=== PATIENT | female | born 1930 | race Two or more races ===

== ENCOUNTER 2016-05-17 19:43 | Inpatient (IN) | payer OTHER ==
--- NOTE | ~2016-05-17 | CR206 ---
[facility] A Service of [facility] & [facility] RADIOLOGY TEXT RESULTS PATIENT: BURTON NEGRETE LOCATION: [place] [address] : [birth year] UNIT #: [id number] AGE: [address]: Kimberley Headley MD SEX: F ORDER DR: [id number] [facility] [address] [place], [place] [address] [id number] I MR#: [id number] Acc #: [id number] NAME: BURTON NEGRETE : 1930 SEX: F STUDY DATE/TIME: 05/18/2016 15:51 UNIT: [facility] ROOM: [facility] STUDY DESCRIPTION: CR Pelvis 1 or 2 Views Attending Physician: Kimberley Headley M.D. Ordering Physician: Kimberley Headley M.D. Primary Care Physician: Mckay Emanuel M.D. MEDICAL IMAGING REPORT This report is preliminary unless electronic signature is present EXAM AP pelvis. INDICATIONS Left hip replacement. Left hip surgery. FINDINGS This is a single AP view of the pelvis centered low over the hips and shows a left total hip prosthesis. There is no fracture or dislocation visible. Right hip appears normal. Dictated by... James Calabrese M.D. THIS IS AN ELECTRONICALLY VERIFIED REPORT James Calabrese M.D. at 05/19/2016 12:24 PM DAFNE/ana TD: 05/19/2016 09:36 JOB #: [id number] MEDICAL IMAGING REPORT COPY
--- NOTE | ~2016-05-17 | OR ---
Unit #: [id number] #: [id number] Patient: BURTON NEGRETE [id number] [address] [address] [id number] I MR#: [id number] NAME: BURTON NEGRETE ROOM: 47 Date of Procedure: 05/18/2016 Admission Date: 05/17/2016 Surgeon: Dirk Cano M.D. : 1930 Attending Physician: Kimberley Headley M.D. Primary Care Physician: Mckay Emanuel M.D. OPERATIVE REPORT PREOPERATIVE DIAGNOSIS Left hip femoral neck fracture. POSTOPERATIVE DIAGNOSIS Left hip femoral neck fracture. PROCEDURE PERFORMED Left hip bipolar hemiarthroplasty. LIBRARY CIRCULATION TECHNICIAN Dr. Angel Rdz, Sr. ANESTHESIA General endotracheal. COMPLICATIONS None. SPECIMENS None. DRAINS None. SURGICAL IMPLANTS 1. Casper bipolar hemiarthroplasty system. Size 14 femoral stem. 2. 0 mm neck length. 3. 44 mm outer diameter bipolar shell. 4. Palacos R+G cement. INDICATIONS FOR PROCEDURE Ms. Negrete is an 85-year-old female with dementia, who lives in assisted living. She fell landing on her left hip resulting in a displaced femoral neck fracture. It was felt she would benefit from bipolar hemiarthroplasty. The risks, benefits, and alternatives of surgery were discussed with the patient and family and informed consent was obtained. She was cleared for surgery. DESCRIPTION OF PROCEDURE On 05/18/2016, the patient was seen in the preoperative holding area, where her surgical site was marked. Preoperative antibiotics were received. H and P and consent updated. The patient was taken to the Unit #: [id number] #: [id number] Patient: BURTON NEGRETE operating room, provided general anesthesia. She was placed in lateral decubitus position with the left hip towards the ceiling. At this point, left hip was prepped and draped in typical sterile fashion. Time-out was performed confirming the correct surgical site and procedure. A standard posterior approach to the hip performed. Incision was taken down through the skin and subcutaneous tissues. The fascia and IT band split. Short external rotators released and a T capsulotomy was performed. Fracture site was identified. Femoral neck cut was made with retractors in place. The femoral head was removed. It was sized. The trial shell was placed and noted to be stable for the appropriate size. Sequential broaching of the femur was then performed up to a 14 mm broach. Hip was provisionally reduced and noted to be stable with leg lengths appropriate with 0 mm neck length. At this point, the instruments were removed. Canal was prepared for cement. Cement was mixed on the back table and injected into the canal. The femoral stem was placed with careful attention to anteversion. Excess cement was removed. After 12 minutes, cement was hardened. Trial 0 mm head again was reduced and the hip was again noted to be stable. The final bipolar shell was assembled and placed. It was stable and the hip was reduced. It was taken through full range of motion. It was noted to be stable. The remainder of 3 L normal saline containing bacitracin pulsed through the wound. The capsulotomy was repaired with 0 Vicryl suture and the #2 Ethibond that had been tagged through the two leaflets. Next, the IT band and fascia were closed with 0 Vicryl suture followed by 2-0 Vicryl for subcutaneous tissues and ramona for skin. Xeroform, 4x4s, ABD pad, tape followed by an abduction pillow were placed. The patient was subsequently awakened from general anesthesia in stable condition and taken to PACU postoperatively. POSTOPERATIVE PLAN The patient will be weightbearing as tolerated on the left lower extremity with posterior precautions. She will be on standard 24-hour antibiotic protocol. She will have SCDs along with Lovenox for DVT prophylaxis. No complications were encountered during the surgical procedure. Dictated by... Li Hardin/brett TD: 05/19/2016 10:55 JOB #: [id number] OPERATIVE REPORT X X PROCEDURE OPERATIVE NOTE
--- NOTE | ~2016-05-17 | CT71 ---
[facility] A Service of [facility] & [facility] RADIOLOGY TEXT RESULTS PATIENT: BURTON NEGRETE LOCATION: [place] [address]- : [birth year] UNIT #: [id number] AGE: [address]: Kimberley Headley MD SEX: F ORDER DR: [id number] [facility] [address] [place], [place] [address] [id number] I MR#: [id number] Acc #: [id number] NAME: BURTON NEGRETE : 1930 SEX: F STUDY DATE/TIME: 05/17/2016 20:04 UNIT: [facility] ROOM: [facility] STUDY DESCRIPTION: CT Head Wo Contrast Attending Physician: Tamara Calderon M.D. Ordering Physician: Dillon Bell D.O. Primary Care Physician: Mckay Emanuel M.D. MEDICAL IMAGING REPORT This report is preliminary unless electronic signature is present EXAM Head CT without contrast 05/17/2016. HISTORY Dizziness and confusion today status post fall. TECHNIQUE This CT exam was performed with one or more of the following radiation dose reduction techniques: automatic exposure control, adjustment of mA and/or kV according to patient size, and iterative reconstruction. Axial images of the brain obtained without contrast show generalized atrophy. There are chronic ischemic changes seen around the ventricles. There is no evidence of mass effect, hemorrhage, or edema and no midline shift is seen. No acute changes are noted. IMPRESSION Atrophy with chronic ischemic changes. No acute changes are seen. Dictated by... Cain Fuentes M.D. THIS IS AN ELECTRONICALLY VERIFIED REPORT Cain Fuentes M.D. at 05/18/2016 2:56 PM KRT/gz TD: 05/18/2016 08:25 JOB #: [id number] MEDICAL IMAGING REPORT COPY
--- NOTE | ~2016-05-17 | CR72 ---
[facility] A Service of [facility] RADIOLOGY TEXT RESULTS PATIENT: BURTON NEGRETE LOCATION: [place] [address]- : [birth year] UNIT #: [id number] AGE: [address]: Kimberley Headley MD SEX: F ORDER DR: [id number] [facility] [address] [place], [place] [address] [id number] I MR#: [id number] Acc #: [id number] NAME: BURTON NEGRETE : 1930 SEX: F STUDY DATE/TIME: 05/17/2016 22:00 UNIT: [facility] ROOM: [facility] STUDY DESCRIPTION: CR Chest Single View Portable Attending Physician: Tamara Calderon M.D. Ordering Physician: Tamara Calderon M.D. Primary Care Physician: Mckay Emanuel M.D. MEDICAL IMAGING REPORT This report is preliminary unless electronic signature is present EXAM Portable chest, 05/17/2016. HISTORY Left hip fracture, preop repair. FINDINGS There is mild cardiac enlargement. There is poor inspiratory result with bibasilar atelectasis. The lungs are otherwise clear. There are no pleural effusions. IMPRESSION Mild cardiac enlargement. No active pulmonary disease. Dictated by... Cain Fuentes M.D. THIS IS AN ELECTRONICALLY VERIFIED REPORT Cain Fuentes M.D. at 05/18/2016 2:57 PM BRENNAN/felicity TD: 05/18/2016 09:02 JOB #: [id number] MEDICAL IMAGING REPORT COPY
--- NOTE | ~2016-05-17 | CO ---
Unit #: [id number] #: [id number] Patient: BURTON NEGRETE [id number] [address] [address] [id number] I MR#: [id number] NAME: BURTON NEGRETE ROOM: 47 Age: 85 Sex: F Admission Date: 05/17/2016 : 1930 Attending Physician: Kimberley eHadley M.D. Primary Care Physician: Laith Emanuel Consultation Date: 05/18/2016 CONSULTATION REPORT REASON FOR CONSULTATION Left femoral neck fracture. HISTORY OF PRESENT ILLNESS Ms. Negrete is a pleasant 85-year-old female with history of dementia, who lives in assisted living. She fell landing on her left hip. She was unable to bear weight. She was brought to the emergency room where she was noted to have a mildly displaced left femoral neck fracture. She was admitted to the medical service. She has dementia and does not really know much for her history. She does note some very mild hip pain with motion. It is better with rest. No prior problems with the hip. It is described as a dull ache. PAST MEDICAL HISTORY 1. Hypothyroidism. 2. Dementia. 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 4. Hysterectomy. 5. Prior foot surgery. ALLERGIES Codeine. HOME MEDICATIONS 1. Vitamin B12. 2. Folic acid. 3. Calcium. 4. Synthroid. 5. Namenda. 6. Remeron. FAMILY HISTORY Noncontributory. SOCIAL HISTORY The patient lives at [facility]. She does not smoke or drink alcohol. REVIEW OF SYSTEMS No appreciable pertinent positives or negatives; however, her dementia limits ability to obtain this. PHYSICAL EXAMINATION GENERAL: This patient is alert for exam. She is in no acute distress. Unit #: [id number] #: [id number] Patient: BURTON NEGRETE She is nonoriented to time and place. VITAL SIGNS: 97.8, 96, 20, 160/85, 96% oxygen saturation. HEENT: Head is atraumatic, normocephalic. Extraocular movements intact. Mucous membranes moist. NECK: Cervical spine midline. No JVD. LUNGS: Breathing nonlabored. Chest rise symmetric. HEART: Pulse regular rate and rhythm. ABDOMEN: Soft, nontender, nondistended. EXTREMITIES: No skin lesions. No clubbing, cyanosis, or edema. Focused orthopedic exam of the left lower extremity reveals that the leg is extremely rotated and shortened. There is painful log roll. Tenderness to palpation over the left hip. Foot warm and well perfused. Normal motor and sensory examination. DIAGNOSTIC STUDIES LABORATORY: BMP with sodium of 133 and otherwise normal. White blood cell count 16.4, hemoglobin 13.1, platelets 227,000. IMAGING: AP pelvis, left lateral hip x-ray reviewed. Transverse fracture of the femoral neck noted with displacement on the lateral view. IMPRESSION An 85-year-old female with a left displaced femoral neck fracture. PLAN Discussed the plan with the patient and her daughter at the bedside. I would recommend a bipolar hip hemiarthroplasty. She is cleared for surgery. She will be on surgery for later today on May 18, 2016. Risks, benefits, and alternatives of surgery discussed. Risks include but not limited to infection, bleeding, nerve injury, blood clots, risks associated with anesthesia, need for further surgery, and possibly . All other questions are answered today. Dictated by... Dirk Cano M.D. EYAD/gloria TD: 05/19/2016 10:02 JOB #: [id number] CC: [phone] CONSULTATION REPORT X X CONSULTATION REPORT
--- NOTE | ~2016-05-17 | DS ---
Unit #: [id number] #: [id number] Patient: BURTON NEGRETE [id number] [address] [address] [id number] I MR#: [id number] NAME: BURTON NEGRETE ROOM: 47 Age: 85 Sex: F Admission Date: 05/17/2016 : 1930 Discharge Date: Attending Physician: Nicholas Burgess M.D. Primary Care Physician: Mckay Emanuel M.D. DISCHARGE SUMMARY TENTATIVE DISCHARGE SUMMARY ANTICIPATED DATE OF DISCHARGE 05/26/2016 ADMISSION DIAGNOSES 1. Left hip fracture, unwitnessed fall. 2. Dementia. 3. Hypothyroidism. 4. Elevated white blood count which could be reactive. 5. Elevated blood pressure. DISCHARGE DIAGNOSES 1. Status post open reduction internal fixation, left hip fracture. 2. Dementia. 3. Hypothyroidism versus euthyroid sick syndrome. 4. Anemia. 5. Microscopic hematuria. 6. Elevated white blood count, resolved. 7. Elevated blood pressure, resolved. CONSULTANTS Dirk Cano M.D. - Orthopedic Surgery. PROCEDURES Left hip bipolar hemiarthroplasty. CONDITION Stable. DISPOSITION [facility] rehab. DISCHARGE MEDICATIONS Will be dictated by my colleague on the date of discharge. DISCHARGE INSTRUCTIONS Will be dictated by my colleague on the date of discharge. RECENT DIAGNOSTIC STUDIES WBC 9.2, hemoglobin 9.2, hematocrit 27.8, platelet count 259,000. Sodium 133, potassium 3.9, chloride 101, CO2 22, glucose 100, BUN 21, creatinine 1.0, calcium 8.2, magnesium 2.1. Unit #: [id number] #: [id number] Patient: BURTON NEGRETE Urine culture final - no growth at 48 hours. TSH 7.45. Portable chest x-ray - date of study 05/20/16: Impression - no dense consolidation. AP of the pelvis: Findings - single AP view of pelvis centered low over the hips shows a left total hip prosthesis. No fracture dislocation visible. Right hip appears normal. CT of the head without contrast, 05/17/16: Impression - atrophy with chronic ischemic changes. No acute changes seen. Left femur AP and lateral, 3/09/17: Findings - transverse subcapital fracture of the left femoral neck with approximately 20 degrees of anterior angulation of the fracture apex. Generalized demineralization. No additional fracture. HOSPITAL COURSE The patient is an 85-year-old female with history of dementia, who was admitted to [facility] on the date of admission status post an unwitnessed fall and left hip fracture. Please refer to history and physical report for complete details. Status post ORIF left hip fracture: Dr. Cano was consulted for orthopedic evaluation and management. The patient underwent the above referenced procedure and tolerated it well. She has worked with physical therapy while here. Per PT note today, the patient is "slow moving and needs continuous encouragement and would benefit from inpatient rehab services." The patient is awake, alert, although pleasantly confused secondary to history of severe dementia. She is eating and drinking well. She has no complaints. Her postop pain is controlled at this time. The patient was ready for discharge from our facility on 05/20/16 but has remained at our facility due to lack of acceptance and be availability until this point. Dementia: The patient is stable. She is receiving Namenda and Remeron on a scheduled basis. She has had an order for Haldol IV every six hours as needed for agitation but, per my review of the medication administration record, she has not received this medication. Again, she has been pleasant and cooperative although confused. Her family members have been staying with her for the most part while here. Hypothyroidism: The patient is on Synthroid at this time. However, given the mildly elevated results and the timing of this evaluation during a period of stress and illness, no changes have been made in her thyroid dose. Recommendation is for repeat thyroid panel once acute postop period has resolved. Acute postop blood loss anemia: The patient's hemoglobin and hematocrit have remained stable. She has no obvious bleeding. Plan - recheck CBC in the morning to evaluate hemoglobin and hematocrit prior to discharge to rehab. Microscopic hematuria: Urinalysis was collected from Valente catheter and patient was noted to have leukocytes and red blood cells in the initial urinalysis. The patient was started on Rocephin 1 g IV daily pending Unit #: [id number] #: [id number] Patient: BURTON NEGRETE urine culture and sensitivity results. Final culture results returned with no growth at 48 hours and patient's Rocephin was discontinued yesterday. Dictated by... Lauren Chang A.P.R.N. for Li Gomez/kenton TD: 05/26/2016 06:37 JOB #: [id number] DISCHARGE SUMMARY X Lauren Chang APRN X DISCHARGE SUMMARY
--- NOTE | ~2016-05-17 | CR72 ---
[facility] A Service of [facility] & [facility] RADIOLOGY TEXT RESULTS PATIENT: BURTON NEGRETE LOCATION: [place] [address] : 31 UNIT #: [id number] AGE: [address]: CRIS GRAY MD SEX: F ORDER DR: [id number] [facility] [address] [place], [place] [address] [id number] I MR#: [id number] Acc #: [id number] NAME: BURTON NEGRETE : 1930 SEX: F STUDY DATE/TIME: 05/20/2016 12:21 UNIT: [facility] ROOM: [facility] STUDY DESCRIPTION: CR Chest Single View Portable Attending Physician: Kimberley Headley M.D. Ordering Physician: García Millard M.D. Primary Care Physician: Mckay Emanuel M.D. MEDICAL IMAGING REPORT This report is preliminary unless electronic signature is present EXAM Portable chest INDICATIONS Fever. Pneumonia today. PROCEDURE Frontal view chest COMPARISON 05/17/2016 FINDINGS Heart size stable. No dense consolidation, effusion or pneumothorax. IMPRESSION No dense consolidation. Dictated by... Scott Massey M.D. THIS IS AN ELECTRONICALLY VERIFIED REPORT Scott Massey M.D. at 05/22/2016 7:00 AM EED/psc TD: 05/20/2016 20:46 JOB #: [id number] MEDICAL IMAGING REPORT COPY
--- NOTE | ~2016-05-17 | CR106 ---
[facility] A Service of [facility] & [facility] RADIOLOGY TEXT RESULTS PATIENT: BURTON NEGRETE LOCATION: [place] [address]- : [birth year] UNIT #: [id number] AGE: [address]: Kimberley Headley MD SEX: F ORDER DR: [id number] [facility] [address] [place], [place] [address] [id number] I MR#: [id number] Acc #: [id number] NAME: BURTON NEGRETE : 1930 SEX: F STUDY DATE/TIME: 05/17/2016 19:14 UNIT: [facility] ROOM: [facility] STUDY DESCRIPTION: CR Femur 2 Views Lt Attending Physician: Tamara Calderon M.D. Ordering Physician: Dillon Bell D.O. Primary Care Physician: Mckay Emanuel M.D. MEDICAL IMAGING REPORT This report is preliminary unless electronic signature is present EXAM Left femur, AP and lateral. HISTORY Hip and femur pain after fall today. Injury. FINDINGS AP and lateral views of left femur demonstrate transverse subcapital fracture of the left femoral neck with approximately 20 degrees of anterior angulation of the fracture apex. Generalized demineralization. No additional fracture. Knee alignment is satisfactory. Dictated by... Aries Pérez M.D. THIS IS AN ELECTRONICALLY VERIFIED REPORT Aries Pérez M.D. at 05/18/2016 11:26 PM DFL/ana TD: 05/18/2016 08:07 JOB #: [id number] MEDICAL IMAGING REPORT COPY
--- NOTE | ~2016-05-17 | DS ---
Unit #: [id number] #: [id number] Patient: BURTON NEGRETE [id number] [address] [address] [id number] I MR#: [id number] NAME: BURTON NEGRETE ROOM: 47 Age: 85 Sex: F Admission Date: 05/17/2016 : 1930 Discharge Date: 05/27/2016 Attending Physician: Nicholas Burgess M.D. Primary Care Physician: Mckay Emanuel M.D. DISCHARGE SUMMARY ADDENDUM The patient was supposed to be discharged on 05/26/2016, but on her labs, she was found to have the abnormal sodium level of 128. She was given a bolus of normal saline. Repeat sodium this morning is 135. She has had no other changes in her clinical condition. MEDICATIONS At discharge include mirtazapine 7.5 mg p.o. daily, Namenda 5 mg daily, calcium carbonate 500 mg one tablet chewable daily, docusate sodium, Senokot one tablet p.o. b.i.d., milk of magnesia 30 mL q.6h as needed, acetaminophen 650 mg p.o. p.r.n. as needed, levothyroxine 88 mcg daily, vitamin B12, folic acid tablet one tablet each p.o. daily. Condition on discharge is stable. Disposition to the . Dictated by... Li Ochoa/brett TD: 05/27/2016 18:57 JOB #: [id number] DISCHARGE SUMMARY X Mickey Flores MD X DISCHARGE SUMMARY
--- NOTE | ~2016-05-17 | EKG ---
PATIENT: BURTON NEGRETE UNIT #: [id number] Ventricular Rate: 91 BPM Atrial Rate: 91 BPM P-R Interval: 196 ms QRS Duration: 80 ms Q-T Interval: 388 ms QTC Calculation(Bezet): 477 ms P [place]: 56 degrees Calculated R [place]: 52 degrees Calculated T [place]: 44 degrees Diagnosis Line: Normal sinus rhythm Diagnosis Line: Nonspecific T wave abnormality Diagnosis Line: Abnormal ECG Diagnosis Line: No previous ECGs available Diagnosis Line: Confirmed by ARIEL MAHAN MD ([id number]) on Diagnosis Line: 05/20/2016 11:57:36 PM INTERPRETING MD: NEGRITO CAVAZOS
--- NOTE | ~2016-05-17 | CR150 ---
[facility] A Service of [facility] & [facility] RADIOLOGY TEXT RESULTS PATIENT: BURTON NEGRETE LOCATION: [place] [address]- : [birth year] UNIT #: [id number] AGE: [address]: Kimberley Headley MD SEX: F ORDER DR: [id number] [facility] [address] [place], [place] [address] [id number] I MR#: [id number] Acc #: [id number] NAME: BURTON NEGRETE : 1930 SEX: F STUDY DATE/TIME: 05/17/2016 19:13 UNIT: [facility] ROOM: [facility] STUDY DESCRIPTION: CR Hip Min 2 Views Lt Attending Physician: Tamara Calderon M.D. Ordering Physician: Dillon Bell D.O. Primary Care Physician: Mckay Emanuel M.D. MEDICAL IMAGING REPORT This report is preliminary unless electronic signature is present EXAM Left hip 2 views HISTORY Hip pain after fall today. FINDINGS 2 views of the left hip demonstrate transverse subcapital fracture of the left femoral neck with approximately 20 degrees anterior angulation of the fracture apex and slight fracture impaction. No dislocation. Generalized demineralization. Dictated by... Aries Pérez M.D. THIS IS AN ELECTRONICALLY VERIFIED REPORT Aries Pérez M.D. at 05/18/2016 11:26 PM DFL/bertin TD: 05/18/2016 08:08 JOB #: [id number] MEDICAL IMAGING REPORT COPY
--- NOTE | ~2016-05-17 | HP ---
Unit #: [id number] #: [id number] Patient: BURTON NEGRETE [id number] [address] [id number] MR#: [id number] NAME: BURTON NEGRETE ROOM: 47 Age: 85 Sex: F Admission Date: 05/17/2016 : 1930 Attending Physician: Tamara Calderon M.D. Primary Care Physician: Mckay Emanuel M.D. HISTORY AND PHYSICAL CHIEF COMPLAINT Left hip fracture. HISTORY This pleasant 85-year-old female with dementia, hypothyroidism, is admitted for a left hip fracture. The patient lives at [facility]. She was found down, and it is unknown how long she is down for. Complained of pain and was brought to this emergency department where x-rays demonstrate a transverse subcapital fracture of the femoral neck. In the ER she was given 2 mg of IV morphine, 4 mg of IV Zofran. She herself does have dementia and really cannot contribute to her history. Her states that she does not have history of heart disease or lung disease. PAST MEDICAL HISTORY 1. Hypothyroidism. 2. Dementia. 3. Vulvar tumor/benign lesion requiring excision. 4. Hysterectomy. 5. Foot surgery. ALLERGIES Codeine. HOME MEDICATIONS Vitamin B12 and folic acid daily; calcium daily; Synthroid 0.088 mg daily; Namenda XR 5 mg daily; Remeron 7.5 mg q.h.s. FAMILY HISTORY Noncontributory given patient's age. SOCIAL HISTORY The patient lives at [facility]. She is a lifelong nonsmoker, was never a heavy drinker of alcohol. Does not drink alcohol currently. REVIEW OF SYSTEMS Impossible to obtain due to patient's dementia. PHYSICAL EXAMINATION GENERAL: Pleasantly confused 85-year-old pale female currently in no acute distress. VITAL SIGNS: Temperature 97.8, pulse 67, respirations 18, blood pressure Unit #: [id number] #: [id number] Patient: BURTON NEGRETE initially 180/92. Current blood pressure is 161/91. O2 saturation is 98% on room air. HEENT: Eyes - PERRLA. Extraocular muscles are intact. Pharynx is benign. NECK: Supple without adenopathy or thyromegaly. CHEST: Clear on patient's supine exam. CARDIAC: Normal S1 and S2 without murmur. ABDOMEN: Bowel sounds are present. Mild suprapubic tenderness, no hepatosplenomegaly or masses. EXTREMITIES: Without edema. Pedal pulses are present. Left leg is foreshortened and externally rotated. NEUROLOGIC: Patient is somnolent but easily arousable. She is pleasantly confused. Her cranial nerves are intact. She is able to move all of her extremities. DIAGNOSTIC STUDIES LABORATORY STUDIES: Hematocrit 39.6, white blood count is 19.8, normal platelet count. Negative cardiac enzymes. Normal coags. SMA 7 - glucose 111, sodium 134. IMAGING STUDIES: X-ray of the left hip and leg show a transverse subcapital fracture of the femoral neck. Head CT - atrophy and small vessel ischemic disease. ASSESSMENT 1. Left hip fracture, unwitnessed fall. 2. Dementia. 3. Hypothyroidism. 4. Elevated white blood count, which could be reactive. 5. Elevated blood pressure. PLANS 1. Obtain EKG, chest x-ray and urinalysis. 2. IV fluids and supportive treatment. 3. Will medically clear based on above. 4. Orthopedic surgeon to consult in the morning. 5. SCDs for DVT prophylaxis. 6. Monitor blood pressure and treat if persistently elevated. Dictated by Li Cunha/minda TD: 05/18/2016 05:02 JOB #: [id number] HISTORY AND PHYSICAL X Tamara Calderon MD X HISTORY AND PHYSICAL
[2016-05-17] MEDS ORDERED: VITAMIN B12-FO1 EACH PO (20:33)
[2016-05-17] MEDS ORDERED: CALCIUM1 TAB.CHEW PO (20:34)
[2016-05-17] MEDS ORDERED: TIROSINT88 MCG PO (20:34)
[2016-05-17] MEDS ORDERED: NAMENDA XR28 MG PO (20:34)
[2016-05-17] MEDS ORDERED: MIRTAZAPINE7.5 MG PO (20:36)
[2016-05-17 21:03] LABS: POC - CKMB <1.0 ng/mL (0.0-7.9); POC - TROPONIN <0.05 ng/mL (<=0.05)
[2016-05-17 21:05] LABS: BASOPHIL% 0.2 % (0-2.5); DIFF IND YES; EOSINOPHIL# 0.1 X10e3 (0-0.7); EOSINOPHIL% 0.7 % (0.0-7.0); HEMATOCRIT 39.6 % (35.0-45.0); HEMOGLOBIN 12.8 gm/dL (12.0-16.0); LYMPHOCYTE# 1.1 X10e3 (1.0-3.5); LYMPHOCYTE% 5.6 % (17.0-45.0); MEAN CELL VOLUME 87.2 FL (83-96); MEAN CORPUSCULAR HEMOGLOBIN 28.1 PG (28-34); MEAN CORPUSCULAR HGB CONC 32.3 g/dL (30-36); MEAN PLATELET VOLUME 9.2 FL (6.5-11.5); MONOCYTE# 0.9 X10e3 (0-1.0); MONOCYTE% 4.3 % (3.0-12.0); NEUTROPHIL# 17.7 X10e3 (1.5-7.1); NEUTROPHIL% 89.2 % (40-75); PLATELET COUNT 250 X10e3 (140-420); RED BLOOD COUNT 4.54 X10e (3.90-5.30); RED CELL DISTRIBUTION WIDTH 13.6 % (11.0-15.5); WHITE BLOOD COUNT 19.8 X10e3 (4.0-10.5)
[2016-05-17 21:10] LABS: BLOOD UREA NITROGEN 22 mg/dL (9-23); CALCIUM SERUM 8.6 mg/dL (8.4-10.2); CARBON DIOXIDE 25 mmol/L (22-31); CHLORIDE 105 mmol/L (100-111); CREATININE SERUM 0.8 mg/dL (0.6-1.4); GLOM FILT RATE Estimated ABOVE60 mL/min (>60); GLUCOSE FASTING 111 mg/dL (70-110); SODIUM 134 mmol/L (135-145)
[2016-05-17 21:17] LABS: PARTIAL THROMBOPLASTIN TIME 27.7 SECONDS (23.5-31.3); PLATELET ESTIMATE NORMAL (NORMAL); PROTHROMBIN TIME (PATIENT) 10.7 SECONDS (9.6-11.5); RBC NORMAL YES
[2016-05-18 03:06] LABS: BASOPHIL% 0.2 % (0-2.5); HEMATOCRIT 39.8 % (35.0-45.0); HEMOGLOBIN 13.1 gm/dL (12.0-16.0); LYMPHOCYTE% 5.8 % (17.0-45.0); MEAN CELL VOLUME 87.5 FL (83-96); MEAN CORPUSCULAR HEMOGLOBIN 28.9 PG (28-34); MEAN PLATELET VOLUME 9.8 FL (6.5-11.5); MONOCYTE# 0.7 X10e3 (0-1.0); MONOCYTE% 4.1 % (3.0-12.0); NEUTROPHIL# 14.7 X10e3 (1.5-7.1); NEUTROPHIL% 89.9 % (40-75); PLATELET COUNT 227 X10e3 (140-420); RED BLOOD COUNT 4.55 X10e (3.90-5.30); RED CELL DISTRIBUTION WIDTH 13.7 % (11.0-15.5); WHITE BLOOD COUNT 16.4 X10e3 (4.0-10.5)
[2016-05-18 03:08] LABS: DIFF IND NO
[2016-05-18 03:20] LABS: PARTIAL THROMBOPLASTIN TIME 28.1 SECONDS (23.5-31.3); PROTHROMBIN TIME (PATIENT) 10.6 SECONDS (9.6-11.5)
[2016-05-18 03:28] LABS: ALBUMIN SERUM 4.2 g/dL (3.5-5.0); ALKALINE PHOSPHATASE 80 U/L (32-92); ALT (SGPT) 22 U/L (10-40); AST (SGOT) 26 U/L (10-42); BLOOD UREA NITROGEN 21 mg/dL (9-23); BUN/CREATININE RATIO 23.33; CALCIUM SERUM 8.8 mg/dL (8.4-10.2); CARBON DIOXIDE 28 mmol/L (22-31); CHLORIDE 102 mmol/L (100-111); CREATININE SERUM 0.9 mg/dL (0.6-1.4); GLOM FILT RATE Estimated ABOVE60 mL/min (>60); GLUCOSE FASTING 142 mg/dL (70-110); POTASSIUM 4.3 mmol/L (3.5-5.1); PROTEIN TOTAL SERUM 7.1 g/dL (6.0-8.3); SODIUM 133 mmol/L (135-145)
[2016-05-18 05:03] LABS: URINE SOURCE CATH
[2016-05-18 05:04] LABS: URINE APPEARANCE CLEAR; URINE BACTERIA AUWI NEG (NEGATIVE); URINE BILIRUBIN NEG (NEG); URINE BLOOD NEG (NEG); URINE COLOR YELLOW; URINE GLUCOSE NEG (NEG); URINE KETONE 1+ (NEG); URINE LEUKOCYTE ESTERASE TRACE (NEG); URINE NITRATE NEG (NEG); URINE PH 6.5 (5-8); URINE PROTEIN NEG (NEG); URINE SPECIFIC GRAVITY 1.019 (1.003-1.035); URINE SQUAMOUS EPITHELIAL CELL NONE SEEN /[HPF]
[2016-05-19 03:48] LABS: BASOPHIL% 0.1 % (0-2.5); HEMATOCRIT 31.7 % (35.0-45.0); LYMPHOCYTE# 0.8 X10e3 (1.0-3.5); LYMPHOCYTE% 5.9 % (17.0-45.0); MEAN CORPUSCULAR HEMOGLOBIN 29.3 PG (28-34); MEAN CORPUSCULAR HGB CONC 33.6 g/dL (30-36); MEAN PLATELET VOLUME 9.7 FL (6.5-11.5); MONOCYTE# 1.2 X10e3 (0-1.0); MONOCYTE% 8.4 % (3.0-12.0); NEUTROPHIL# 12.1 X10e3 (1.5-7.1); NEUTROPHIL% 85.6 % (40-75); PLATELET COUNT 195 X10e3 (140-420); RED BLOOD COUNT 3.64 X10e (3.90-5.30); RED CELL DISTRIBUTION WIDTH 13.3 % (11.0-15.5); WHITE BLOOD COUNT 14.1 X10e3 (4.0-10.5)
[2016-05-19 03:49] LABS: DIFF IND NO; HEMOGLOBIN 10.6 gm/dL (12.0-16.0)
[2016-05-19 04:17] LABS: CALCIUM SERUM 8.6 mg/dL (8.4-10.2); GLOM FILT RATE Estimated 56.1 mL/min (>60); MAGNESIUM 1.9 mg/dL (1.6-3.0); POTASSIUM 4.1 mmol/L (3.5-5.1)
[2016-05-20 03:50] LABS: BASOPHIL% 0.2 % (0-2.5); EOSINOPHIL# 0.1 X10e3 (0-0.7); EOSINOPHIL% 0.4 % (0.0-7.0); HEMATOCRIT 27.6 % (35.0-45.0); HEMOGLOBIN 9.2 gm/dL (12.0-16.0); LYMPHOCYTE# 1.6 X10e3 (1.0-3.5); LYMPHOCYTE% 11.8 % (17.0-45.0); MEAN CELL VOLUME 87.1 FL (83-96); MEAN CORPUSCULAR HGB CONC 33.3 g/dL (30-36); MEAN PLATELET VOLUME 9.9 FL (6.5-11.5); MONOCYTE# 1.6 X10e3 (0-1.0); MONOCYTE% 11.9 % (3.0-12.0); NEUTROPHIL% 75.7 % (40-75); PLATELET COUNT 152 X10e3 (140-420); RED BLOOD COUNT 3.17 X10e (3.90-5.30); RED CELL DISTRIBUTION WIDTH 13.4 % (11.0-15.5); WHITE BLOOD COUNT 13.2 X10e3 (4.0-10.5)
[2016-05-20 03:52] LABS: DIFF IND NO
[2016-05-20 04:20] LABS: CALCIUM SERUM 7.9 mg/dL (8.4-10.2); GLOM FILT RATE Estimated 56.1 mL/min (>60)
[2016-05-21 03:52] LABS: BASOPHIL% 0.4 % (0-2.5); DIFF IND NO; EOSINOPHIL# 0.2 X10e3 (0-0.7); EOSINOPHIL% 1.3 % (0.0-7.0); HEMATOCRIT 28.4 % (35.0-45.0); HEMOGLOBIN 9.5 gm/dL (12.0-16.0); LYMPHOCYTE# 1.4 X10e3 (1.0-3.5); LYMPHOCYTE% 10.8 % (17.0-45.0); MEAN CELL VOLUME 87.3 FL (83-96); MEAN CORPUSCULAR HEMOGLOBIN 29.2 PG (28-34); MEAN CORPUSCULAR HGB CONC 33.5 g/dL (30-36); MEAN PLATELET VOLUME 10.2 FL (6.5-11.5); MONOCYTE# 1.5 X10e3 (0-1.0); MONOCYTE% 11.9 % (3.0-12.0); NEUTROPHIL# 9.8 X10e3 (1.5-7.1); NEUTROPHIL% 75.6 % (40-75); PLATELET COUNT 161 X10e3 (140-420); RED BLOOD COUNT 3.26 X10e (3.90-5.30); RED CELL DISTRIBUTION WIDTH 13.3 % (11.0-15.5)
[2016-05-21 04:16] LABS: CALCIUM SERUM 8.5 mg/dL (8.4-10.2); GLOM FILT RATE Estimated 56.1 mL/min (>60); POTASSIUM 3.9 mmol/L (3.5-5.1)
[2016-05-22 03:39] LABS: BASOPHIL% 0.3 % (0-2.5); EOSINOPHIL# 0.3 X10e3 (0-0.7); EOSINOPHIL% 2.8 % (0.0-7.0); HEMATOCRIT 26.6 % (35.0-45.0); HEMOGLOBIN 8.9 gm/dL (12.0-16.0); LYMPHOCYTE# 1.5 X10e3 (1.0-3.5); LYMPHOCYTE% 13.9 % (17.0-45.0); MEAN CELL VOLUME 87.8 FL (83-96); MEAN CORPUSCULAR HEMOGLOBIN 29.3 PG (28-34); MEAN CORPUSCULAR HGB CONC 33.4 g/dL (30-36); MEAN PLATELET VOLUME 9.9 FL (6.5-11.5); MONOCYTE# 1.1 X10e3 (0-1.0); MONOCYTE% 10.5 % (3.0-12.0); NEUTROPHIL# 7.6 X10e3 (1.5-7.1); NEUTROPHIL% 72.5 % (40-75); PLATELET COUNT 193 X10e3 (140-420); RED BLOOD COUNT 3.02 X10e (3.90-5.30); RED CELL DISTRIBUTION WIDTH 13.1 % (11.0-15.5); WHITE BLOOD COUNT 10.5 X10e3 (4.0-10.5)
[2016-05-22 03:41] LABS: DIFF IND NO
[2016-05-22 15:40] LABS: URINE APPEARANCE CLEAR; URINE BILIRUBIN NEG (NEG); URINE BLOOD NEG (NEG); URINE COLOR DK YELLOW; URINE GLUCOSE NEG (NEG); URINE KETONE NEG (NEG); URINE LEUKOCYTE ESTERASE 1+ (NEG); URINE NITRATE NEG (NEG); URINE PH 7.5 (5-8); URINE PROTEIN 1+ (NEG); URINE SPECIFIC GRAVITY 1.022 (1.003-1.035)
[2016-05-22 15:43] LABS: URINE BACTERIA AUWI NEG (NEGATIVE); URINE SQUAMOUS EPITHELIAL CELL NONE SEEN /[HPF]
[2016-05-23 04:29] LABS: BASOPHIL% 0.3 % (0-2.5); EOSINOPHIL# 0.4 X10e3 (0-0.7); EOSINOPHIL% 4.1 % (0.0-7.0); HEMATOCRIT 27.4 % (35.0-45.0); HEMOGLOBIN 8.9 gm/dL (12.0-16.0); LYMPHOCYTE# 1.6 X10e3 (1.0-3.5); LYMPHOCYTE% 16.2 % (17.0-45.0); MEAN CELL VOLUME 87.3 FL (83-96); MEAN CORPUSCULAR HEMOGLOBIN 28.6 PG (28-34); MEAN CORPUSCULAR HGB CONC 32.7 g/dL (30-36); MEAN PLATELET VOLUME 9.6 FL (6.5-11.5); MONOCYTE# 1.3 X10e3 (0-1.0); MONOCYTE% 13.3 % (3.0-12.0); NEUTROPHIL# 6.5 X10e3 (1.5-7.1); NEUTROPHIL% 66.1 % (40-75); PLATELET COUNT 217 X10e3 (140-420); RED BLOOD COUNT 3.13 X10e (3.90-5.30); WHITE BLOOD COUNT 9.9 X10e3 (4.0-10.5)
[2016-05-23 04:33] LABS: DIFF IND NO
[2016-05-23 05:00] LABS: BLOOD UREA NITROGEN 15 mg/dL (9-23); BUN/CREATININE RATIO 16.66; CALCIUM SERUM 8.1 mg/dL (8.4-10.2); CARBON DIOXIDE 28 mmol/L (22-31); CHLORIDE 105 mmol/L (100-111); CREATININE SERUM 0.9 mg/dL (0.6-1.4); GLOM FILT RATE Estimated ABOVE60 mL/min (>60); GLUCOSE FASTING 97 mg/dL (70-110); MAGNESIUM 2.1 mg/dL (1.6-3.0); SODIUM 134 mmol/L (135-145)
[2016-05-24 04:01] LABS: BASOPHIL# 0.1 X10e3 (0-0.3); BASOPHIL% 0.6 % (0-2.5); DIFF IND NO; EOSINOPHIL# 0.4 X10e3 (0-0.7); EOSINOPHIL% 4.1 % (0.0-7.0); HEMATOCRIT 27.8 % (35.0-45.0); HEMOGLOBIN 9.2 gm/dL (12.0-16.0); LYMPHOCYTE# 1.6 X10e3 (1.0-3.5); LYMPHOCYTE% 17.8 % (17.0-45.0); MEAN CELL VOLUME 88.3 FL (83-96); MEAN CORPUSCULAR HEMOGLOBIN 29.1 PG (28-34); MEAN CORPUSCULAR HGB CONC 32.9 g/dL (30-36); MEAN PLATELET VOLUME 9.7 FL (6.5-11.5); MONOCYTE# 1.1 X10e3 (0-1.0); MONOCYTE% 12.4 % (3.0-12.0); NEUTROPHIL% 65.1 % (40-75); PLATELET COUNT 259 X10e3 (140-420); RED BLOOD COUNT 3.15 X10e (3.90-5.30); RED CELL DISTRIBUTION WIDTH 13.3 % (11.0-15.5); WHITE BLOOD COUNT 9.2 X10e3 (4.0-10.5)
[2016-05-24 04:30] LABS: CALCIUM SERUM 8.2 mg/dL (8.4-10.2); GLOM FILT RATE Estimated 56.1 mL/min (>60); MAGNESIUM 2.1 mg/dL (1.6-3.0); POTASSIUM 3.9 mmol/L (3.5-5.1)
[2016-05-26 03:58] LABS: HEMOGLOBIN 9.1 gm/dL (12.0-16.0); MEAN CELL VOLUME 88.5 FL (83-96); MEAN CORPUSCULAR HEMOGLOBIN 28.9 PG (28-34); MEAN CORPUSCULAR HGB CONC 32.6 g/dL (30-36); MEAN PLATELET VOLUME 9.2 FL (6.5-11.5); RED BLOOD COUNT 3.16 X10e (3.90-5.30); RED CELL DISTRIBUTION WIDTH 13.3 % (11.0-15.5); WHITE BLOOD COUNT 12.3 X10e3 (4.0-10.5)
[2016-05-26 04:32] LABS: CALCIUM SERUM 8.7 mg/dL (8.4-10.2); GLOM FILT RATE Estimated 56.1 mL/min (>60); MAGNESIUM 2.3 mg/dL (1.6-3.0); POTASSIUM 4.6 mmol/L (3.5-5.1)
[2016-05-27 04:19] LABS: CALCIUM SERUM 8.8 mg/dL (8.4-10.2); GLOM FILT RATE Estimated 56.1 mL/min (>60); POTASSIUM 4.5 mmol/L (3.5-5.1)
== END 2016-05-27 19:08 | DRG 469 ==
LOC: CED 19:43 → CEDOF 21:00 → C4C 23:22
PROVIDERS: Emergency Medicine; Internal Medicine; Internal Medicine Endocrinology, Diabetes & Metabolism; Nurse Practitioner; Orthopaedic Surgery
PROC: 0SRS0J9 Replacement of Left Hip Joint, Femoral Surface with Synthetic Substitute, Cemented, Open Approach (ICD-10-PCS; principal; 2016-05-17)
DX: S72.012A Unspecified intracapsular fracture of left femur, initial encounter for closed fracture (principal); J95.2 Acute pulmonary insufficiency following nonthoracic surgery; R31.21 Asymptomatic microscopic hematuria; F03.90 Unspecified dementia, unspecified severity, without behavioral disturbance, psychotic disturbance, mood disturbance, and anxiety; E87.1 Hypo-osmolality and hyponatremia; D62 Acute posthemorrhagic anemia; W19.XXXA Unspecified fall, initial encounter; Y92.099 Unspecified place in other non-institutional residence as the place of occurrence of the external cause; E03.9 Hypothyroidism, unspecified; Z90.710 Acquired absence of both cervix and uterus; Y83.9 Surgical procedure, unspecified as the cause of abnormal reaction of the patient, or of later complication, without mention of misadventure at the time of the procedure; Z88.5 Allergy status to narcotic agent; M81.0 Age-related osteoporosis without current pathological fracture; R82.90 Unspecified abnormal findings in urine; D72.829 Elevated white blood cell count, unspecified; R03.0 Elevated blood-pressure reading, without diagnosis of hypertension
CPT/HCPCS: 36415; 70450; 71010; 72170; 73502; 73552; 80048; 80053; 81003; 82553; 83735; 84443; 84484; 85025; 85027; 85610; 85730; 87086; 93005; 94010; 96374; 96375; 97110; 97116; 97162; 97530; 99285; C1776; G8978-GP; G8979-GP; J0360; J0690; J0696; J1100; J1630; J1650; J2270; J2370; J2405; J3010

== ENCOUNTER → 2016-11-19 | Outpatient (CLI) | payer OTHER ==
[~2016-11-19] MED LIST: CALCIUM1 TAB.CHEW PO; MIRTAZAPINE7.5 MG PO; NAMENDA XR28 MG PO; TIROSINT88 MCG PO; VITAMIN B12-FO1 EACH PO
--- NOTE | ~2016-11-19 | BD1 ---
[facility] A Service of [facility] RADIOLOGY TEXT RESULTS PATIENT: BURTON NEGRETE [facility] UNIT #: [id number] AGE: [address]: MELISSA ALFARO MD SEX: F ORDER DR: [id number] [address] [address] [id number] MR#: [id number] Acc #: [id number] NAME: BURTON NEGRETE : 1930 SEX: F STUDY DATE/TIME: 11/19/2016 11:25 [facility]: STUDY DESCRIPTION: BD Dexa Bone Dens 1+ Site Attending Physician: Melissa Alfaro Referring Physician: Melissa Alfaro Ordering Physician: Adelfo Wellington Primary Care Physician: Melissa Alfaro MEDICAL IMAGING REPORT This report is preliminary unless electronic signature is present. EXAMINATIO DEXA scan n DATE: 11/19/2016 HISTORY 86-year-old postmenopausal female for osteoporosis screening. COMPARISON None. FINDINGS L1 through L4 total bone mineral density is 0.7305 cm square with the T-score -3.7 and Z-score -2.1, corresponding to range of osteoporosis. The right femoral necks total bone mineral density 0.601 g/cm2 ere with T-score -3.1 and Z-score -0.9, corresponding to range of osteoporosis. Distal third radius bone mineral density is 0.6268 g/cm2 with T-score -4.4 and Z-score -1.2, correspond to range of osteoporosis. IMPRESSION The bone low density within the right femoral neck, distal third of the radius, and the lumbar spine each correspond to the range of osteoporosis. This stratifies the patient at increased risk for fracture. Appropriate medical therapy is advised. Dictated by... Glo Quesada M.D. THIS IS AN ELECTRONICALLY VERIFIED REPORT Glo Quesada M.D. at 11/20/2016 5:04 PM [facility] A Service of [facility] RADIOLOGY TEXT RESULTS PATIENT: BURTON NEGRETE [facility] UNIT #: [id number] AGE: [address]: MELISSA ALFARO MD SEX: F ORDER DR: Dilan TD: 11/20/2016 10:54 JOB #: [id number] MEDICAL IMAGING REPORT Page 1 of 1
== END | disposition home or self-care (01) ==
LOC: SRAD 10:52
DX: M89.9 Disorder of bone, unspecified (principal); Z87.81 Personal history of (healed) traumatic fracture
CPT/HCPCS: 77080